=== PATIENT | male | born 1960 | race Caucasian/White ===

== ENCOUNTER 2021-10-29 06:25 | Day surgery (SDC) | payer OTHER ==
[~2021-10-29] VITALS: Ht 180.3 cm; Wt 79.5 kg
--- NOTE | 2021-10-29 08:11 | NUR ---
10/29/21 0811 Ilene Hernandez 0808- PT ARRIVES TO PACU WITH EYES OPENING AND TALKING TO STAFF. PT REPORTS NO PAIN OR NAUSEA. RESP EVEN AND UNLABORED. OXYGEN SAT HIGH 90'S ON 2L VIA CO2 NC. 0811- PT PASSING FLATUS.
--- NOTE | 2021-10-29 08:18 | NUR ---
PT ALERT, ORIENTED AND HERE FOR ROUTINE SCOPE.PT HAS HAD SCOPES PREVIOUS. ALL QUESTIONS ASKED ANSWERED, PT'S BOAZ WILL BE HERE FOR DC. PA REQUESTED PRAYER, WILL FOLLOW
--- NOTE | 2021-10-29 09:36 | OR ---
[facility] [address], [place] [address] Signed DATE OF OPERATION: 10/29/2021 SURGEON: Simi Mckenzie MD PREOPERATIVE DIAGNOSIS: Colon screening. POSTOPERATIVE DIAGNOSES: 1. Diverticulosis sigmoid and left colon. 2. Enlarged prostate without nodule. PROCEDURE: Total colonoscopy to cecum. ANESTHESIA: Intravenous sedation; fentanyl 150 mcg and Versed 7 mg. INDICATION: This 61-year-old white man is a patient Dr. Sanchez and known to me from the past having undergone colonoscopy 10 years ago which was normal. He is symptom free, having no bleeding diarrhea or constipation. He is admitted to undergo colonoscopy for screening. He understands the risks of bleeding, infection, and perforation. FINDINGS: The prep was excellent. Complete colonoscopy was undertaken to the cecum without question. He had diverticulosis of the sigmoid and left colon but no evidence of polyps. Of note, on rectal examination, he did have an enlarged prostate without nodule and the prostate was symmetric. PROCEDURE: The patient was brought to the endoscopy suite and placed in lateral decubitus position, given intravenous sedation to the point of slurred speech and nystagmus. Digital rectal examination demonstrated an enlarged prostate. It did not appear to have nodule. An Olympus video colonoscope was passed in the rectum and manipulated throughout the colon noting diverticula of the sigmoid and left colon. Scope was ultimately advanced to the cecum without problem. The ileocecal valve and appendiceal orifice were normal. The scope was withdrawn from that point and examination throughout showed no sign of Electronically Signed By: SIMI MCKENZIE MD 10/29/21 0936 PATIENT NAME: MARJORIE DICKERSON OPERATIVE REPORT DATE OF : 62 REPORT #: [id number] PHYSICIAN: SIMI MCKENZIE MD PCP: JOSE SANCHEZ MD REPORT IS CONFIDENTIAL AND NOT TO BE RELEASED WITHOUT AUTHORIZATION [facility] [address] [place], [place] [address], [place] [address] Signed abnormality other than the diverticula of the left colon and sigmoid. Retroflexed view of the rectum was normal as well. The scope was removed and patient was taken to recovery room in good condition. CONCLUDING DIAGNOSES: 1. Diverticulosis. 2. Enlarged prostate without nodule. PLAN: Recommend repeat colonoscopy in 10 years or sooner if symptoms should occur. We will check a PSA test. I know of no specific symptoms of urinary problem nor any previous evaluation for enlarged prostate. MD KETAN Chang/ANDREW /[id number] cc: Dr. Sanchez Copies: ~ Electronically Signed By: SIMI MCKENZIE MD 10/29/21 0936 PATIENT NAME: MARJORIE DICKERSON OPERATIVE REPORT DATE OF : 62 REPORT #: [id number] PHYSICIAN: SIMI MCKENZIE MD PCP: JOSE SANCHEZ MD REPORT IS CONFIDENTIAL AND NOT TO BE RELEASED WITHOUT AUTHORIZATION
== END 2021-10-29 09:04 | disposition home or self-care (01) ==
LOC: DS 06:25 → OPS 06:25 → DS 07:30 → OPS 09:04
PROVIDERS: ATTEND Surgery
PROC: 0DJD8ZZ Inspection of Lower Intestinal Tract, Via Natural or Artificial Opening Endoscopic (ICD-10-PCS; principal; 2021-10-29 07:30)
DX: Z12.11 Encounter for screening for malignant neoplasm of colon (principal); K57.30 Diverticulosis of large intestine without perforation or abscess without bleeding; N40.0 Benign prostatic hyperplasia without lower urinary tract symptoms; T14.90XS Injury, unspecified, sequela
CPT/HCPCS: 36415; 84153; J2250; J3010